=== PATIENT | male | born 1975 | race Caucasian/White ===

== ENCOUNTER → 2017-07-30 | Outpatient (CLI) | payer OTHER ==
--- NOTE | 2017-07-31 09:26 | REP ---
LUMBAR SPINE SERIES: Seven views. HISTORY: Lower back pain. FINDINGS: Lumbar vertebral body heights are preserved. Flexion/extension lateral radiographs show no subluxation or instability. Normal alignment. Disc spaces are maintained in height. There is slight discogenic spurring and L5-S1 anteriorly. Pedicles and posterior elements are intact. There is no evidence of spondylolysis or spondylolisthesis. Psoas margins are symmetric. Sacrum and SI joints are unremarkable. IMPRESSION: Minimal discogenic spurring anteriorly at L5-S1. Otherwise normal lumbar spine radiographs. Signed by Andrei Murray MD 07/31/2017 11:38 A
--- NOTE | 2017-07-31 09:27 | REP ---
CERVICAL SPINE SERIES: Seven views. HISTORY: Neck pain. No comparison study. FINDINGS: Lateral views done in flexion extension and neutral position show preserved vertebral body heights and normal alignment. No subluxation is seen. There is mild degenerative disc disease at C5-6 with disc space narrowing and early anterior osteophyte formation. Other disc spaces are maintained. Open mouth odontoid and AP views are unremarkable. Oblique radiographs demonstrate intact neural foramina bilaterally at each cervical level and normally aligned facets. IMPRESSION: Mild degenerative disc disease at C5-6. Otherwise negative cervical spine series. Signed by Andrei Murray MD 07/31/2017 11:39 A
== END ==
LOC: M RAD 20:01
PROVIDERS: ATTEND Physician Assistant
DX: M51.35 Other intervertebral disc degeneration, thoracolumbar region (principal); M50.03 Cervical disc disorder with myelopathy, cervicothoracic region; M54.5 Low back pain

== ENCOUNTER → 2019-10-25 | Outpatient (CLI) | payer OTHER | LOC: M LABSMTC 10:09 | PROVIDERS: ATTEND Family Medicine | DX: Z11.59 Encounter for screening for other viral diseases (principal); Z20.820 Contact with and (suspected) exposure to varicella | CPT/HCPCS: 87486; 87581; 87633; 87798; U0002 ==

== ENCOUNTER → 2022-07-25 | Outpatient (CLI) | payer OTHER ==
[2022-07-25 17:50] LABS: BASO % 0.6 % (0.0-1.0); EOS # 0.1 10^3/uL (0.0-0.5); EOS % 1.3 % (0.0-3.0); HEMATOCRIT 45.2 % (42.0-52.0); HEMOGLOBIN 14.7 g/dl (13.5-17.5); LYMPH # 1.7 10^3/uL (1.5-5.0); LYMPH % 31.5 % (24.0-44.0); MEAN CORPUSCULAR HEMOGLOBIN 28.7 pg (27.0-33.0); MEAN CORPUSCULAR HGB CONC 32.5 g/dl (32.0-36.5); MEAN CORPUSCULAR VOLUME 88.1 fl (80.0-96.0); MONO # 0.4 10^3/uL (0.0-0.8); MONO % 7.8 % (2.0-8.0); NEUTROPHILS # 3.1 10^3/uL (1.5-8.5); NEUTROPHILS % 58.4 % (36.0-66.0); PLATELET COUNT, AUTOMATED 287 10^3/uL (150-450); RED BLOOD COUNT 5.13 10^6/uL (4.30-6.10); WHITE BLOOD COUNT 5.4 10^3/uL (4.0-10.0)
[2022-07-25 17:51] LABS: HEMOGLOBIN A1c 5.3 % (4.0-6.0)
[2022-07-25 18:05] LABS: ALBUMIN 4.2 G/DL (3.2-5.2); ALKALINE PHOSPHATASE 62 U/L (46-116); ALT/SGPT 30 U/L (7.0-40); AST/SGOT 20 U/L (<34); BILIRUBIN,TOTAL 0.5 MG/DL (0.3-1.2); BLOOD UREA NITROGEN 17 MG/DL (9-23); CALCIUM LEVEL 9.2 MG/DL (8.5-10.1); CARBON DIOXIDE LEVEL 27 MMOL/L (20-31); CHLORIDE LEVEL 106 MMOL/L (98-107); CHOLESTEROL LEVEL 143 MG/DL (<200); CHOLESTEROL RISK RATIO 3.52 (<5); CREATININE FOR GFR 1.03 MG/DL (0.70-1.30); GLOMERULAR FILTRATION RATE > 60.0 (>60); GLUCOSE, FASTING 102 MG/DL (60-100); HDL CHOLESTEROL 40.6 MG/DL (>40); LDL CHOLESTEROL 81.2 MG/DL (<100); NON-HDL-C 102 MG/DL; POTASSIUM SERUM 4.4 MMOL/L (3.5-5.1); SODIUM LEVEL 139 MMOL/L (136-145); TRIGLYCERIDES LEVEL 106 MG/DL (<150)
== END ==
LOC: M WUC 10:36
PROVIDERS: ATTEND Physician Assistant
DX: E78.5 Hyperlipidemia, unspecified (principal); I10 Essential (primary) hypertension
CPT/HCPCS: 36415; 80053; 80061; 83036; 85025; G0103

== ENCOUNTER → 2022-09-10 | Outpatient (CLI) | payer OTHER ==
[2022-09-10 14:00] LABS: HEPATITIS B SURFACE ANTIGEN NEGATIVE (NEGATIVE)
[2022-09-11 13:08] LABS: HERPES ZOSTER, VARICELLA IgG 893 index (Immune >165); HERPES ZOSTER, VARICELLA IgM <0.91 index (0.00-0.90); MUMPS VIRUS IgG ANTIBODY <9.0 AU/mL (Immune >10.9)
== END ==
LOC: M WUC 11:19
PROVIDERS: ATTEND Physician Assistant
DX: Z01.84 Encounter for antibody response examination (principal); Z11.1 Encounter for screening for respiratory tuberculosis

== ENCOUNTER 2024-06-08 09:03 | Day surgery (SDC) | payer OTHER ==
[~2024-06-08] VITALS: Ht 170.2 cm; Wt 108.0 kg
[~2024-06-08 09:03] MED LIST: ERGO500029 PO; IBUP-359 PO; LISI20TA33 PO; MULT-90 PO; NS 250 ML IV ONE; ROSU40TA81 PO
[2024-06-08] MEDS ORDERED: LIDOCAINE 2% 100MG/5ML SDV (FOR ANES.) As Ordered ONE (09:49)
[2024-06-08] MEDS ORDERED: propofoL 500 MG/50 ML VIAL As Ordered ONE (09:51)
[2024-06-08 11:15] VITALS: BP 132/90; O2SAT 97
== END 2024-06-08 11:30 | disposition home or self-care (01) ==
LOC: M OPP 09:03
PROVIDERS: ATTEND Internal Medicine Gastroenterology
DX: K63.5 Polyp of colon (principal); K57.30 Diverticulosis of large intestine without perforation or abscess without bleeding; I10 Essential (primary) hypertension; E78.5 Hyperlipidemia, unspecified; Z79.899 Other long term (current) drug therapy; Z80.41 Family history of malignant neoplasm of ovary